=== PATIENT | female | born 1950 | race Caucasian/White ===

== ENCOUNTER 2021-02-21 20:25 | Emergency (ER) | payer OTHER ==
[~2021-02-21] VITALS: Ht 149.9 cm; Wt 51.3 kg
[2021-02-21] MEDS ORDERED: BENADRYL (21:05)
[2021-02-21] MEDS ORDERED: LORATADINE 10 MG (21:06)
[2021-02-21] MEDS ORDERED: BENADRYL ALLERG25 MG PO (23:44)
[2021-02-21] MEDS ORDERED: MEDROLPACK PO (23:44)
== END 2021-02-21 23:54 | disposition home or self-care (01) ==
LOC: EMR PED 20:25 → ER 20:25
DX: R21 Rash and other nonspecific skin eruption (principal)